=== PATIENT | female | born 1985 | race African-American/Black ===

== ENCOUNTER 2018-08-21 14:47 | Emergency (ER) | payer MEDICAID ==
[~2018-08-21] VITALS: Ht 172.7 cm; Wt 77.5 kg
[2018-08-21 17:50] VITALS: BP 123/72
== END 2018-08-21 17:58 | disposition home or self-care (01) ==
LOC: ER 14:57
DX: R06.02 Shortness of breath (principal); R42 Dizziness and giddiness; R00.2 Palpitations; F41.9 Anxiety disorder, unspecified; R03.0 Elevated blood-pressure reading, without diagnosis of hypertension; B20 Human immunodeficiency virus [HIV] disease
CPT/HCPCS: 71045; 81025; 93005; 99284

== ENCOUNTER 2019-02-15 13:24 | Emergency (ER) | payer MEDICAID ==
[~2019-02-15] VITALS: Ht 167.6 cm; Wt 77.0 kg
[2019-02-15] MEDS ORDERED: LIDOCAINE HCL 2% 5ML SYRINGE IV ONE (15:30)
[2019-02-15] MEDS ORDERED: BACITRACIN ZINC OINT UDPKT TOP ONE (15:30)
[2019-02-15] MEDS ORDERED: ACETAMINOPHEN 325MG TABLET PO ONE (15:30)
[2019-02-15 17:10] VITALS: BP 112/68
== END 2019-02-15 17:16 | disposition home or self-care (01) ==
LOC: ER 13:56
DX: S61.211A Laceration without foreign body of left index finger without damage to nail, initial encounter (principal); W45.8XXA Other foreign body or object entering through skin, initial encounter; Y93.89 Activity, other specified; Y92.89 Other specified places as the place of occurrence of the external cause; Y99.8 Other external cause status
CPT/HCPCS: 12001; 96374; 99283; J3490; Z7610

== ENCOUNTER 2019-02-27 13:30 | Emergency (ER) | payer MEDICAID ==
[~2019-02-27] VITALS: Ht 165.1 cm; Wt 80.0 kg
[2019-02-27 14:20] VITALS: BP_SYST 139
== END 2019-02-27 16:18 | disposition home or self-care (01) ==
LOC: ER 13:30
DX: S61.211D Laceration without foreign body of left index finger without damage to nail, subsequent encounter (principal); F17.200 Nicotine dependence, unspecified, uncomplicated; X58.XXXD Exposure to other specified factors, subsequent encounter
CPT/HCPCS: 99281

== ENCOUNTER 2021-07-02 07:58 | Emergency (ER) | payer MEDICAID ==
[~2021-07-02] VITALS: Ht 165.1 cm; Wt 70.0 kg
[2021-07-02] MEDS ORDERED: ACETAMINOPHEN 325MG TABLET PO STA (08:49)
[2021-07-02] MEDS ORDERED: METOCLOPRAMIDE HCL 10MG/2ML VIAL IV ONE (09:00)
[2021-07-02] MEDS ORDERED: SODIUM CHLORIDE 0.9% 1,000 ML IV ONE (09:00)
[2021-07-02] MEDS ORDERED: LORAZEPAM 0.5MG TABLET PO ONE (09:00)
[2021-07-02 10:15] VITALS: BP 122/84
[2021-07-02] MEDS ORDERED: ACET-2708 MT (11:20)
== END 2021-07-02 11:38 | disposition home or self-care (01) ==
LOC: ER 08:13
DX: R51.9 Headache, unspecified (principal); M43.6 Torticollis; F17.290 Nicotine dependence, other tobacco product, uncomplicated; Z98.890 Other specified postprocedural states
CPT/HCPCS: 70450; 81025; 96361; 96374; 99284; J2765; J7030; Z7610